=== PATIENT | female | born 1955 | race Asian ===

== ENCOUNTER 2019-04-17 18:26 | Emergency (ER) | payer OTHER, SELFPAY ==
[2019-04-17 18:29] VITALS: BP 168/101; PULSE 105; RESP 16; TEMP 37.1; O2SAT 100
[2019-04-17 19:10] VITALS: BP 141/77; PULSE 67; RESP 18; O2SAT 100
--- NOTE | 2019-04-17 19:46 | ED.GENADULT ---
HPI - General Adult General Chief complaint: Unspecified <Devon Oshea PA-C - Last Filed: 04/17/19 19:50> Stated complaint: High Blood Pressure <Devon Oshea PA-C - Last Filed: 04/17/19 19:50> Time Seen by Provider: 04/17/19 18:34 <Devon Oshea PA-C - Last Filed: 04/17/19 19:50> Source: patient <MOHIT Fischer Last Filed: 04/17/19 19:50> Mode of arrival: ambulatory <MOHIT Fischer Last Filed: 04/17/19 19:50> Limitations: no limitations <MOHIT Fischer Last Filed: 04/17/19 19:50> History of Present Illness HPI narrative: Patient presents with chief complaint of concern for high blood pressure. Patient states that she took her blood pressure earlier and it was in the 160s over 100. Patient states she was told by her registered nurse midwife that she needs to monitor her blood pressure. Patient states her primary care provider started her on chlorthalidone 25 mg but she just took her first tablet today. Patient states when she noticed how high her blood pressures were she began to get worry and felt that she had a headache. Patient denies any dizziness, chest pain, shortness of breath, nausea, vomiting, syncope, change in vision or hearing, dark urine, abdominal pain, headache or any other symptoms at this time. <MOHIT Fischer Last Filed: 04/17/19 19:50> Related Data Home medications: Home Medications Medication Instructions Recorded Confirmed chlorthalidone 25 mg PO DAILY 04/17/19 04/17/19 metformin mg PO 04/17/19 ranitidine HCl 04/17/19 simvastatin mg 04/17/19 <MOHIT Fischer Last Filed: 04/17/19 19:50> Allergies/adverse reactions: Allergies Allergy/AdvReac Type Severity Reaction Status Date / Time ibuprofen Allergy Severe THROAT Verified 11/26/18 23:12 SWELLING, DIFFICULTY BREATHING amoxicillin Allergy Mild Unknown Verified 04/17/19 18:34 aspirin Allergy Mild Unknown Verified 04/17/19 18:34 Penicillins Allergy Unknown Unknown Verified 04/17/19 18:34 sulfamethoxazole Allergy Unknown Unknown Verified 04/17/19 18:34 trimethoprim Allergy Unknown Unknown Verified 04/17/19 18:34 SHELLFISH Allergy Unknown Unknown Uncoded 04/17/19 18:34 <Devon Oshea PA-C - Last Filed: 04/17/19 19:50> Review of Systems Review of Systems: Narrative: CONSTITUTIONAL: Denies fever, chills, or sweats. EYES: Denies visual changes, redness, or discharge. ENT: Denies rhinorrhea, congestion, sore throat, or otalgia. CARDIOVASCULAR: Denies chest pain, palpitations, or edema. RESPIRATORY: Denies cough or dyspnea. GASTROINTESTINAL: Denies abdominal pain, nausea, vomiting, or diarrhea. GENITOURINARY: Denies dysuria or hematuria. SKIN: Denies rash or itching. MUSCULOSKELETAL: Denies back pain, joint pain, or myalgia. NEUROLOGIC: Denies headache, numbness, dizziness, or weakness. PSYCHIATRIC: Denies anxiety or depression. <Devon Oshea PA-C - Last Filed: 04/17/19 19:50> [facility] Social History Social History: Social History Gender identity (if verbalized by the patient): Female <Devon Oshea PA-C - Last Filed: 04/17/19 19:50> Exam Narrative: Exam Narrative: GENERAL: Well-appearing, well-nourished, and in no acute distress. HEAD: Normocephalic, atraumatic. EYES: PERRLA and EOMI. ENT: Nares clear, no rhinorrhea or epistaxis. Mucous membranes moist. Oropharynx without tonsillar hypertrophy exudate or other lesions. Bilateral TMs pearly bennett nonbulging NECK: Supple. No adenopathy or masses. No carotid bruits or JVD CHEST: Clear to auscultation. No respiratory distress. No wheezes rales or rhonchi HEART: Regular rate and rhythm. No murmur heard. Normal peripheral pulses. ABDOMEN: Soft, nontender, nondistended, normal active bowel sounds. EXTREMITIES: Normal range of motion. No edema. SKIN: Warm, dry, no rash. NEURO: No focal deficits. Alert and oriented x3. PSYCH: Normal mood and affect. <Devon Oshea PA-C
[2019-04-17 20:04] VITALS: BP 147/77; PULSE 60; RESP 18; TEMP 36.4; O2SAT 99
== END 2019-04-17 20:06 | disposition home or self-care (01) ==
PROVIDERS: Emergency Provider Emergency Medicine
DX: I10 Essential (primary) hypertension (principal)
CPT/HCPCS: 99281

== ENCOUNTER 2019-05-09 03:18 | Emergency (ER) | payer OTHER, SELFPAY ==
[2019-05-09 03:25] VITALS: BP 173/86; PULSE 85; RESP 17; TEMP 36.7; O2SAT 100
--- NOTE | 2019-05-09 03:52 | ED.GENADULT ---
HPI - General Adult General Chief complaint: Recheck/Abnormal Lab/Rx Stated complaint: HI B/P Time Seen by Provider: 05/09/19 03:28 History of Present Illness HPI narrative: Pt c/o her bp being high tonight, 170/90, 170/100's , denies any symptoms. Denies headache, dizziness, speech or visual disturbance, weakness, numbness, cp, sob, abd pain or n/v. Pt states she was recently placed on bp medication last week. Pt currently denies any symptoms. Associated symptoms: denies other symptoms Related Data Home Medications Medication Instructions Recorded Confirmed chlorthalidone 25 mg PO DAILY 04/17/19 04/17/19 metformin mg PO 04/17/19 ranitidine HCl 04/17/19 simvastatin mg 04/17/19 Allergies Allergy/AdvReac Type Severity Reaction Status Date / Time ibuprofen Allergy Severe THROAT Verified 11/26/18 23:12 SWELLING, DIFFICULTY BREATHING amoxicillin Allergy Mild Unknown Verified 04/17/19 18:34 aspirin Allergy Mild Unknown Verified 04/17/19 18:34 Penicillins Allergy Unknown Unknown Verified 04/17/19 18:34 sulfamethoxazole Allergy Unknown Unknown Verified 04/17/19 18:34 trimethoprim Allergy Unknown Unknown Verified 04/17/19 18:34 SHELLFISH Allergy Unknown Unknown Uncoded 04/17/19 18:34 Review of Systems Review of Systems: All systems reviewed & are unremarkable except as noted in HPI and below PMFSH Social History Social History Gender identity (if verbalized by the patient): Female Exam Const: General: cooperative, healthy appearing, comfortable, no acute distress, well developed, alert and awake; No confusion Orientation/consciousness: oriented to person, oriented to place, oriented to time, patient oriented x3 and No confusion Limitations: no limitations HENMT: Head: normal to inspection, normocephalic and atraumatic Ears: hearing grossly normal bilaterally, TM normal on the right and TM normal on the left General nose exam: Normal external nose present, Normal nares present and No nasal discharge present Face and sinus: normal facial exam Mouth: Yes Normal oral and palatal mucosa present, Yes lip normal, Yes tongue normal and Yes oropharynx normal Throat: posterior oropharynx normal, tonsils normal and uvula midline Eyes: General: appearance normal, both eyes and all related structures Pupils: Equal, round and reactive pupils present EOM: EOMs intact bilaterally Neck: Neck: normal visual inspection, full ROM, no lymphadenopathy and no meningeal signs Chest: Chest palpation & inspection: normal inspection of the chest Resp: Effort & Inspection: normal respiratory effort, able to speak in complete sentences, no respiratory distress and not tachypneic Auscultation: clear to auscultation bilaterally, no crackles, no rales, no rhonchi and no wheezes Cardio: Rate: regular rate Rhythm: regular rhythm GI: Inspection: normal to inspection GI Palp: No abdominal tenderness, Yes Soft to palpation, No Tenderness to palpation present (GI), No Guarding due to palpation present (GI), No Rigid due to palpation and No Rebound tenderness present Auscultation: normal bowel sounds : General: Yes no CVA tenderness Back/Spine/Pelvis: Back: no CVA tenderness Skin: General skin exam: normal color, no rashes or lesions noted, elasticity normal and turgor normal Neuro: General: oriented to person, oriented to place, oriented to time, patient oriented x3, tone normal, moves all extremities, Normal light touch and pain sensation, no meningeal signs, no focal motor deficits, CN's II-XI intact bilaterally and No confusion Cranial nerves: Yes Equal, round and reactive pupils present Speech: No Abnormal speech present Sensory Exam: No Sensory deficit (Neuro) Extrem: General: normal to inspection, full ROM and capillary refill normal Psych: Appearance: grossly normal and well kempt Mental Status: mental status grossly normal Speech and movement: Normal speech and movement present Affect: normal affect Attitu
[2019-05-09 04:03] VITALS: BP 124/94; PULSE 84; RESP 16; TEMP 36.2; O2SAT 100
== END 2019-05-09 04:04 | disposition home or self-care (01) ==
PROVIDERS: Emergency Provider Emergency Medicine
DX: I10 Essential (primary) hypertension (principal)
CPT/HCPCS: 99283

== ENCOUNTER 2023-01-07 15:41 | Emergency (ER) | payer MEDICARE, OTHER, SELFPAY ==
--- NOTE | 2023-01-07 15:44 | ED.SKABFB ---
HPI - Skin/Abscess/Foreign Bdy General Chief complaint: Skin/Abscess/Foreign Body Stated complaint: Rash on Knees, Arm, Face Time Seen by Provider: 01/07/23 15:43 Source: patient Mode of arrival: ambulatory Limitations: no limitations History of Present Illness HPI narrative: Delia is a 67-year-old female patient presenting to the clinic today with complaints of a rash on her knees, arms, and face. 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 She denies any new environmental changes, soaps, shampoos, detergents, lotions, foods, or medications. She denies any shortness of breath or chest pain. Related Data Home Medications Medication Instructions Recorded Confirmed alendronate 70 mg tablet 70 mg PO DAILY 01/07/23 01/07/23 atorvastatin 40 mg tablet 40 mg PO DAILY 01/07/23 01/07/23 blood sugar diagnostic (FreeStyle 01/07/23 01/07/23 Lite Strips) chlorthalidone 25 mg tablet 25 mg PO DAILY 01/07/23 01/07/23 cholecalciferol (vitamin D3) 50 50 mcg PO DAILY 01/07/23 01/07/23 mcg (2,000 unit) tablet epinephrine 0.3 mg/0.3 mL 0.3 ml IM PRN PRN Anaphylaxis 01/07/23 01/07/23 injection, auto-injector fexofenadine 180 mg tablet 180 mg PO DAILY 01/07/23 01/07/23 lancets 28 gauge (FreeStyle 01/07/23 01/07/23 Lancets) lisinopril 10 mg tablet 10 mg PO DAILY 01/07/23 01/07/23 metformin 500 mg tablet,extended 500 mg PO BID 01/07/23 01/07/23 release 24 hr omega-3 acid ethyl esters 1 gram 1 g PO WEEKLY 01/07/23 01/07/23 capsule pantoprazole 20 mg tablet,delayed 20 mg PO DAILY 01/07/23 01/07/23 release Allergies Allergy/AdvReac Type Severity Reaction Status Date / Time amoxicillin Allergy Severe Anaphylaxis Verified 01/07/23 16:03 aspirin Allergy Severe Anaphylaxis Verified 01/07/23 16:03 ibuprofen Allergy Severe Anaphylaxis Verified 01/07/23 16:03 Penicillins Allergy Severe Anaphylaxis Verified 01/07/23 16:03 sulfamethoxazole Allergy Severe Anaphylaxis Verified 01/07/23 16:03 trimethoprim Allergy Severe Anaphylaxis Verified 01/07/23 16:03 SHELLFISH Allergy Severe Anaphylaxis Uncoded 01/07/23 16:03 Review of Systems Review of Systems: Pertinent positives per HPI. Patient denies any fever, chills, headache, visual changes, dizziness, cough, runny nose, sore throat, shortness of breath, chest pain, palpitations, nausea, vomiting, diarrhea, constipation, abdominal pain, or any urinary issues. PMFSH Social History Social History Gender identity (if verbalized by the patient): Female Comments At the time of my signature, I reviewed and agree with the nursing past medical, surgical, social, and family history. There is no relevant family history pertinent to the patient complaint. Exam Narrative: General: Well-developed, well nourished, in no apparent distress Head: Normocephalic, atraumatic. Cardio: Regular rate and rhythm, s1 and s2 normal, no murmur appreciated. Resp: Clear to auscultation bilaterally, no rhonchi, rales, wheezing or rubs. Integumentary: [place], warm, and dry, intact without lesion, red, raised, scaly, weeping rash to the flexor surface of the elbows, knees, and on the face. Course Course Emergency Course: Portions of this record may have been created with voice recognition software. Level of Care: Express Care Visit Vital Signs Vital signs: Vital Signs Temperature 36.7 C 01/07/23 15:56 Pulse Rate 70 01/07/23 15:56 Respiratory Rate 20 01/07/23 15:56 Blood Pressure 117/56 L 01/07/23 15:56 Pulse Oximetry 99 01/07/23 15:56 Oxygen Delivery Room Air 01/07/23 15:56 Temperature 36.7 C 01/07/23 15:56 Pulse Rate 70 01/07/23 15:56 Respiratory Rate 20 01/07/23 15:56 Blood Pressure 117/56 L 01/07/23 15:56 Pulse Oximetry 99 01/07/23 15:56 Oxygen Delivery Room Air 01/07/23 15:56 Vital signs reviewe
[2023-01-07 15:56] VITALS: BP 117/56; PULSE 70; RESP 20; TEMP 36.7; O2SAT 99
== END 2023-01-07 16:06 | disposition home or self-care (01) ==
LOC: EXPTROY 15:49
PROVIDERS: Emergency Provider Nurse Practitioner Family
DX: L30.9 Dermatitis, unspecified (principal); I10 Essential (primary) hypertension; K21.9 Gastro-esophageal reflux disease without esophagitis; E11.9 Type 2 diabetes mellitus without complications
CPT/HCPCS: 99213; G0463